=== PATIENT | male | born 1965 | race Two or more races ===

== ENCOUNTER 2017-08-22 02:13 | Emergency (ER) | payer SELFPAY ==
[~2017-08-22] VITALS: Ht 165.1 cm; Wt 83.9 kg
[2017-08-22 02:20] VITALS: BP 122/75
[2017-08-22] MEDS ORDERED: ZANTAC150 MG ORAL (02:28)
[2017-08-22] MEDS ORDERED: LOSARTAN POTASS50 MG ORAL (02:28)
[2017-08-22] MEDS ORDERED: DEXILANT30 MG ORAL (02:28)
[2017-08-22] MEDS ORDERED: ATENOLOL25 MG ORAL (02:28)
[2017-08-22] MEDS ORDERED: LOPID600 MG ORAL (02:28)
[2017-08-22] MEDS ORDERED: LIPITOR40 MG ORAL (02:28)
[2017-08-22 02:43] LABS: BASOPHILS % (AUTO) 1.1 % (0.0-2.0); EOSINOPHILS % (AUTO) 1.7 % (0.0-3.0); HEMATOCRIT 38.7 % (42.0-52.0); HEMOGLOBIN 12.4 G/DL (14.2-18.0); LYMPHOCYTES % (AUTO) 35.1 % (20.0-45.0); MEAN CORPUSCULAR VOLUME 81 FL (80-99); NEUTROPHILS % (AUTO) 53.1 % (45.0-75.0); PLATELET COUNT 181 K/UL (150-450); WHITE BLOOD COUNT 4.5 K/UL (4.8-10.8)
[2017-08-22] MEDS ORDERED: Mylanta II UD 30ml ORAL ONE ×2 (02:45→03:30)
[2017-08-22] MEDS ORDERED: Dicyclomine HCl 10mg/5ml oral soln ORAL ONE ×2 (02:45→03:30)
[2017-08-22] MEDS ORDERED: Lidocaine 2% Visc 15ml soln ORAL ONE ×2 (02:45→03:30)
--- NOTE | 2017-08-22 02:53 | Emergency Room Report ---
History of Present Illness General Chief Complaint: Chest Pain Source: Patient Present Illness HPI Patient present with complaints of chest pain midsternal epigastric Denies any shortness of breath denies any cough Pain came on at 8:00 this evening Patient does not recall exactly what he was doing Patient has had a fairly significant previous CVA With left-sided weakness and uses a wheelchair Denies any neck pain or photophobia denies any vomiting Pain was a sharp pain that lasts a few seconds Allergies: Uncoded Allergies: IV CONTRAST (Allergy, Unknown, 08/22/17) Patient History Past Medical History: see triage record Pertinent Family History: none Reviewed Nursing Documentation: PMH: Agreed, PSxH: Agreed Nursing Documentation-PMH Past Medical History: No History, Except For Hx Hypertension: Yes Hx Cerebrovascular Accident: Yes - 2015 Review of Systems All Other Systems: negative except mentioned in HPI Physical Exam Vital Signs Date Time Temp Pulse Resp B/P (MAP) Pulse Ox O2 Delivery O2 Flow Rate FiO2 08/22/17 02:20 56 12 Room Air 08/22/17 02:20 98.1 122/75 98 Sp02 EP Interpretation: reviewed, normal General Appearance: well appearing, no apparent distress Head: normocephalic, atraumatic Eyes: bilateral eye PERRL, bilateral eye EOMI ENT: hearing grossly normal, normal pharynx, TMs + canals normal, uvula midline , other - Left facial paralysis Neck: full range of motion, supple, no meningismus, no bony tend Respiratory: lungs clear, normal breath sounds, no rhonchi, no respiratory distress, no retraction, no accessory muscle use Cardiovascular #1: normal peripheral pulses, regular rate, rhythm, no edema, no gallop, no JVD, no murmur Gastrointestinal: normal bowel sounds, non tender, soft, no mass, no organomegaly, non-distended, no guarding, no hernia, no pulsatile mass, no rebound Genitourinary: no CVA tenderness Musculoskeletal: other - left-sided weak Neurologic: oriented x3, responsive, sensory intact Psychiatric: mood/affect normal Skin: normal color, no rash, warm/dry, palpation normal Lymphatic: normal inspection, no adenopathy Medical Decision Making Diagnostic Impression: Primary Impression: Chest pain ER Course Patient is a fairly complex patient with multiple differential to consideration including but not limited to cardiac cardiopulmonary and vascular emergencies Patient's EKG is normal Blood work is also at normal levels X-ray was normal Patient describes recent hospitalizations at [facility] recent hospitalization at at [place] Patient reports that he has previous reports of requiring upper endoscopy gastric issues At this time there could be some potential overlap with that however the chest and does not appear to be cardiac in nature and the patient is stable for close followup Labs Test 08/22/17 02:32 White Blood Count 4.5 K/UL (4.8-10.8) Red Blood Count 4.80 M/UL (4.70-6.10) Hemoglobin 12.4 G/DL (14.2-18.0) Hematocrit 38.7 % (42.0-52.0) Mean Corpuscular Volume 81 FL (80-99) Mean Corpuscular Hemoglobin 25.7 PG (27.0-31.0) Mean Corpuscular Hemoglobin Concent 31.9 G/DL (32.0-36.0) Red Cell Distribution Width 15.0 % (11.6-14.8) Platelet Count 181 K/UL (150-450) Mean Platelet Volume 9.5 FL (6.5-10.1) Neutrophils (%) (Auto) 53.1 % (45.0-75.0) Lymphocytes (%) (Auto) 35.1 % (20.0-45.0) Monocytes (%) (Auto) 9.0 % (1.0-10.0) Eosinophils (%) (Auto) 1.7 % (0.0-3.0) Basophils (%) (Auto) 1.1 % (0.0-2.0) Sodium Level 141 MMOL/L (136-145) Potassium Level 3.3 MMOL/L (3.5-5.1) Chloride Level 106 MMOL/L (98-107) Carbon Dioxide Level 25 MMOL/L (21-32) Anion Gap 10 mmol/L (5-15) Blood Urea Nitrogen 19 mg/dL (7-18) Creatinine 1.1 MG/DL (0.55-1.30) Estimat Glomerular Filtration Rate > 60 mL/min (>60) Glucose Level 100 MG/DL (74-106) Calcium Level 8.7 MG/DL (8.5-10.1) Total Bilirubin 0.4 MG/DL (0.2-1.0) Aspartate Amino Transf (AST/SGOT) 19 U/L (15-37) Alanine Aminotransferase (ALT/SGPT) 27 U/L (12-78) Alkaline Phosphatase 65 U/L (46-116) Total Creatine Kinase 210 U/L (26-308) Creatine Kinase MB 1.5 NG/ML (0.0-3.6) Creatine Kinase MB Relative Index 0.7 Troponin I 0.000 ng/mL (0.000-0.056) Total Protein 7.5 G/DL (6.4-8.2) Albumin 4.1 G/DL (3.4-5.0) Globulin 3.4 g/dL Albumin/Globulin Ratio 1.2 (1.0-2.7) Lipase 290 U/L (73-393) EKG Diagnostic Results Rate: normal Rhythm: NSR ST Segments: no acute changes Rhythm Strip Diag. Results EP Interpretation: yes Rate: 60 Rhythm: NSR, no PVC's, no ectopy Chest X-Ray Diagnostic Results Chest X-Ray Diagnostic Results : Chest X-Ray Ordered: Yes # of Views/Limited/Complete: 1 View Indication: Chest Pain EP Interpretation: Yes Interpretation: no consolidation, no effusion, no pneumothorax Impression: No acute disease Electronically Signed by: Guillermo Linn DO Last Vital Signs Date Time Temp Pulse Resp B/P (MAP) Pulse Ox O2 Delivery O2 Flow Rate FiO2 08/22/17 02:22 98.2 60 16 139/92 99 Room Air Status: improved Disposition: HOME, SELF-CARE Condition: Improved Additional Instructions: Patient is provided with the discharge instructions notified to follow up with primary doctor in the next 2-3 days otherwise return to the er with any worsening symptoms. Please note that this report is being documented using [employer] technology. This can lead to erroneous entry secondary to incorrect interpretation by the dictating instrument. GUILLERMO LINN D.O. Aug 22, 2017 02:53
[2017-08-22 02:56] LABS: ANION GAP 10 mmol/L (5-15); BLOOD UREA NITROGEN 19 mg/dL (7-18); CALCIUM 8.7 MG/DL (8.5-10.1); CARBON DIOXIDE 25 MMOL/L (21-32); CHLORIDE 106 MMOL/L (98-107); CREATININE 1.1 MG/DL (0.55-1.30); POTASSIUM 3.3 MMOL/L (3.5-5.1); SODIUM 141 MMOL/L (136-145)
[2017-08-22 03:10] LABS: ALANINE AMINOTRANSFERASE 27 U/L (12-78); ALBUMIN 4.1 G/DL (3.4-5.0); ALBUMIN/GLOBULIN RATIO 1.2 (1.0-2.7); ALKALINE PHOSPHATASE 65 U/L (46-116); ASPARTATE AMINO TRANSFERASE 19 U/L (15-37); BILIRUBIN,TOTAL 0.4 MG/DL (0.2-1.0); CKMB 1.5 NG/ML (0.0-3.6); CREATINE KINASE 210 U/L (26-308)
[2017-08-22 03:28] VITALS: BP 128/71
[2017-08-22 03:30] VITALS: BP 128/71
--- NOTE | 2017-08-22 08:36 | Diagnostic Imaging Report ---
Indication: Pain Technique: XRAY Chest 1v Comparison: None Findings: Heart size and mediastinal contours are within normal limits given technique. There is no focal consolidation, pneumothorax or pleural effusion. Osseous structures demonstrate no acute abnormality. Impression: No radiographic evidence of acute cardiopulmonary disease.
--- NOTE | 2017-08-22 14:45 | Cardiology Report ---
APPROVED REPORT EKG Measurement Heart [id number] Normal sinus rhythm Normal ECG
== END 2017-08-22 03:30 | disposition home or self-care (01) ==
LOC: EMR 02:25
DX: R07.9 Chest pain, unspecified (principal); I10 Essential (primary) hypertension; Z86.73 Personal history of transient ischemic attack (TIA), and cerebral infarction without residual deficits; Z91.041 Radiographic dye allergy status
CPT/HCPCS: 36415; 71045; 80053; 82550; 82553; 83690; 84484; 85025; 93005; 99283

== ENCOUNTER 2017-08-29 02:33 | Emergency (ER) | payer SELFPAY ==
[~2017-08-29] VITALS: Ht 170.2 cm; Wt 68.0 kg
[~2017-08-29 02:33] MED LIST: ATENOLOL25 MG ORAL; DEXILANT30 MG ORAL; LIPITOR40 MG ORAL; LOPID600 MG ORAL; LOSARTAN POTASS50 MG ORAL; ZANTAC150 MG ORAL
[2017-08-29] MEDS ORDERED: NORVASC10 MG ORAL (02:41)
[2017-08-29] MEDS ORDERED: PANTOPRAZOLE SO40 MG ORAL (02:41)
[2017-08-29] MEDS ORDERED: ASPIRIN81 MG ORAL (02:41)
[2017-08-29] MEDS ORDERED: AMOXICILLI250 MG/5 M ORAL (02:41)
[2017-08-29] MEDS ORDERED: FERROUS SULFAT325 MG ORAL (02:41)
[2017-08-29] MEDS ORDERED: CLARITHROMYCIN500 MG PO (02:41)
[2017-08-29] MEDS ORDERED: SERTRALINE HCL25 MG ORAL (02:41)
[2017-08-29] MEDS ORDERED: Ketorolac 30mg Inj IV ONE (03:00)
--- NOTE | 2017-08-29 03:04 | Emergency Room Report ---
History of Present Illness General Chief Complaint: Chest Pain Source: Patient, Medical Record, EMS Present Illness HPI Is a 51-year-old male with history blood pressure. He is also wheelchair- bound. He present with chief complaint of epigastric chest pain. Pain is mild. Onset for last 4 hours. Also with vomiting. Now with headache. Similar symptom in the past he was just here a few days ago for the same. Before that he was admitted to [facility] for several days. No radiation. No diaphoresis. No shortness of breath. Allergies: Uncoded Allergies: IV CONTRAST (Allergy, Unknown, 08/22/17) Patient History Past Medical History: see triage record, old chart reviewed, HTN Past Surgical History: none Pertinent Family History: none Social History: Denies: smoking Immunizations: other Reviewed Nursing Documentation: PMH: Agreed, PSxH: Agreed Nursing Documentation-PMH Hx Cerebrovascular Accident: Yes - 2016 Review of Systems Eye: Denies: eye pain, blurred vision ENT: Denies: ear pain, nose congestion, throat swelling Respiratory: Denies: cough, shortness of breath Cardiovascular: Reports: chest pain, Denies: palpitations Gastrointestinal: Denies: abdominal pain, diarrhea, nausea, vomiting Musculoskeletal: Denies: back pain, joint pain Skin: Denies: rash Neurological: Denies: headache, numbness Endocrine: Denies: increased thirst, increased urine Hematologic/Lymphatic: Denies: easy bruising All Other Systems: negative except mentioned in HPI Physical Exam Vital Signs Date Time Temp Pulse Resp B/P (MAP) Pulse Ox O2 Delivery O2 Flow Rate FiO2 08/29/17 02:29 98.2 78 18 140/84 98 Room Air vitals normal Sp02 EP Interpretation: reviewed, normal General Appearance: well appearing, no apparent distress, alert Head: normocephalic, atraumatic Eyes: bilateral eye PERRL, bilateral eye EOMI ENT: hearing grossly normal, normal pharynx Neck: full range of motion, supple, no meningismus Respiratory: chest non-tender, lungs clear, normal breath sounds Cardiovascular #1: regular rate, rhythm, no murmur Gastrointestinal: normal bowel sounds, non tender, no mass, no organomegaly, no bruit, non-distended Musculoskeletal: back normal, normal range of motion Psychiatric: mood/affect normal Skin: warm/dry Medical Decision Making Diagnostic Impression: Primary Impression: Chest pain Qualified Codes: R07.9 - Chest pain, unspecified Additional Impression: Vomiting Qualified Codes: R11.10 - Vomiting, unspecified ER Course Patient present with atypical chest pain. Unlikely to be cardiac. He was at [place] prior to the last visit. After this he was at [facility] a few days. He hasn't issue is GI where he can't keep anything down. Unknown workup. He does not appear to be dehydrated. Tolerating by mouth. He was just discharged from [facility]. EKG Diagnostic Results Rate: normal Rhythm: NSR ST Segments: other - Nonspecific ST changes Rhythm Strip Diag. Results Rhythm Strip Time: 03:04 EP Interpretation: yes Rate: 75 Rhythm: NSR, no PVC's, no ectopy Last Vital Signs Date Time Temp Pulse Resp B/P (MAP) Pulse Ox O2 Delivery O2 Flow Rate FiO2 08/29/17 02:34 78 18 Room Air 08/29/17 02:29 98.2 140/84 98 Status: improved Disposition: HOME, SELF-CARE Condition: Stable Patient Instructions: Nonspecific Chest Pain Additional Instructions: Followup with your doctor as scheduled. Return if symptom worsen. INGRID HILL M.D. Aug 29, 2017 03:04
[2017-08-29 04:08] VITALS: BP 127/83
[2017-08-29 05:21] VITALS: BP 111/83
[2017-08-29 05:24] VITALS: BP 111/83
== END 2017-08-29 05:25 | disposition home or self-care (01) ==
LOC: EDBD 02:33 → EMR 03:19
DX: R07.89 Other chest pain (principal); R11.10 Vomiting, unspecified; Z86.73 Personal history of transient ischemic attack (TIA), and cerebral infarction without residual deficits
CPT/HCPCS: 84484; 96374; 99284; J1885

== ENCOUNTER 2020-03-25 12:52 | Emergency (ER) | payer MEDICAID ==
[~2020-03-25] VITALS: Ht 175.3 cm; Wt 77.1 kg
[~2020-03-25 12:52] MED LIST changes: +AMOXICILLI250 MG/5 M ORAL; +ASPIRIN81 MG ORAL; +CLARITHROMYCIN500 MG PO; +FERROUS SULFAT325 MG ORAL; +NORVASC10 MG ORAL; +PANTOPRAZOLE SO40 MG ORAL; +SERTRALINE HCL25 MG ORAL
[2020-03-25] MEDS ORDERED: Solu-MEDROL 125mg Inj IVP ONE (13:15)
[2020-03-25] MEDS ORDERED: Ipratropium 0.02% Inh Soln 2.5ml UD HHN SCH (13:15)
[2020-03-25] MEDS ORDERED: Albuterol ud Inhalation HHN ONE (13:15)
--- NOTE | 2020-03-25 13:28 | NUR ---
ED Nurse Note: Covid swab collected and sent to lab
[2020-03-25 13:30] VITALS: BP 139/88
[2020-03-25 13:37] LABS: EOSINOPHILS % (AUTO) 1.4 % (0.0-3.0); HEMATOCRIT 43.3 % (42.0-52.0); HEMOGLOBIN 14.4 G/DL (14.2-18.0); LYMPHOCYTES % (AUTO) 29.1 % (20.0-45.0); MEAN CORPUSCULAR VOLUME 93 FL (80-99); MONOCYTES % (AUTO) 7.4 % (1.0-10.0); PLATELET COUNT 119 K/UL (150-450); RED BLOOD COUNT 4.63 M/UL (4.70-6.10); RED CELL DISTRIBUTION WIDTH 11.5 % (11.6-14.8); WHITE BLOOD COUNT 4.6 K/UL (4.8-10.8)
--- NOTE | 2020-03-25 13:45 | NUR ---
ED Nurse Note: Patient BIBA from home d/t 03/13 left-sided chest pain/pressure that radiates to right shoulder x 1 week. Denies n/v, shortness of breath. EMS gave 325 ASA and nitro intranasal x 1. Patient AxO x 4, hx of asthma and CVA. Patient calm and in no acute distress.
[2020-03-25 13:50] LABS: ANION GAP 10 mmol/L (5-15); BLOOD UREA NITROGEN 18 mg/dL (7-18); CARBON DIOXIDE 26 MMOL/L (21-32); CHLORIDE 107 MMOL/L (98-107); POTASSIUM 3.6 MMOL/L (3.5-5.1); SODIUM 143 MMOL/L (136-145)
--- NOTE | 2020-03-25 13:59 | Emergency Room Report ---
History of Present Illness General Chief Complaint: Chest Pain Source: Medical Record (Kulwinder Fernandez MD) Present Illness HPI Patient is a 54-year-old male who reports having intermittent chest pain for the past few weeks. Prior history of high cholesterol as well as CVA. Patient has a residual difficulty with some movements including opening and closing his mouth. Reports having increased shortness of breath as well as increased nasal congestion. Denies any prior cardiac history. He has prior history of asthma. Denies any recent fever. Had been receiving therapy for lower extremity weakness. (Kulwinder Fernandez MD) Allergies: Coded Allergies: IODINE (Unverified Allergy, Unknown, 03/25/20) Uncoded Allergies: IV CONTRAST (Allergy, Unknown, 08/22/17) COVID-19 Screening Contact w/high risk pt: No Experienced COVID-19 symptoms?: No COVID-19 Testing performed FOREST RANGER: No (Kulwinder Fernandez MD) Patient History Past Medical History: see triage record Reviewed Nursing Documentation: PMH: Agreed; PSxH: Agreed (Kulwinder Fernandez MD) Nursing Documentation-PMH Past Medical History: No History, Except For Hx Hypertension: Yes - DYSARTHRIA, DYSPHAGIA, GASTRIC ULCER, Hx Asthma: Yes Hx Cerebrovascular Accident: Yes - 2016 (Kulwinder Fernandez MD) Review of Systems All Other Systems: negative except mentioned in HPI (Kulwinder Fernandez MD) Physical Exam Vital Signs Date Time Temp Pulse Resp B/P (MAP) Pulse Ox O2 Delivery O2 Flow Rate FiO2 03/25/20 12:54 99.3 76 18 139/88 (105) 97 Room Air Sp02 EP Interpretation: reviewed, normal General Appearance: normal inspection, well appearing, no apparent distress, alert, GCS 15 Head: atraumatic ENT: normal ENT inspection, hearing grossly normal, normal voice Neck: normal inspection, full range of motion, supple, no bony tend Respiratory: normal inspection, lungs clear, normal breath sounds, no respiratory distress, no retraction, no wheezing Cardiovascular #1: regular rate, rhythm, no edema Gastrointestinal: normal inspection, normal bowel sounds, non tender, soft, no guarding, no hernia Genitourinary: no CVA tenderness Musculoskeletal: normal inspection, back normal, other - Motor weakness to the left lower extremity, difficulty with opening the mouth Neurologic: alert, responsive, speech normal, normal inspection Psychiatric: normal inspection, judgement/insight normal, mood/affect normal (Kulwinder Fernandez MD) Medical Decision Making Diagnostic Impression: Primary Impression: Chest pain Qualified Codes: R07.9 - Chest pain, unspecified ER Course Patient presented for chest pain. Differential diagnosis included but was not limited to acute coronary syndrome, pulmonary embolism, pneumonia, aortic dissection, shingles, pneumothorax, aortic dissection, esophageal rupture, pericarditis. EKG showed normal sinus rhythm with a rate of [address] changes. Patient appears to have chest pain which appears to be respiratory in nature likely related to his asthma. Chest x-ray 1 view read by radiology showed normal cardiac size without evident infiltrate coronavirus testing was ordered due to patient's respiratory symptoms as it appears breathing treatment is necessary.. Patient was given IV steroids as well as breathing treatment. Labs Test 03/25/20 13:05 White Blood Count 4.6 K/UL (4.8-10.8) Red Blood Count 4.63 M/UL (4.70-6.10) Hemoglobin 14.4 G/DL (14.2-18.0) Hematocrit 43.3 % (42.0-52.0) Mean Corpuscular Volume 93 FL (80-99) Mean Corpuscular Hemoglobin 31.2 PG (27.0-31.0) Mean Corpuscular Hemoglobin Concent 33.4 G/DL (32.0-36.0) Red Cell Distribution Width 11.5 % (11.6-14.8) Platelet Count 119 K/UL (150-450) Mean Platelet Volume 9.9 FL (6.5-10.1) Neutrophils (%) (Auto) 61.0 % (45.0-75.0) Lymphocytes (%) (Auto) 29.1 % (20.0-45.0) Monocytes (%) (Auto) 7.4 % (1.0-10.0) Eosinophils (%) (Auto) 1.4 % (0.0-3.0) Basophils (%) (Auto) 1.0 % (0.0-2.0) Sodium Level 143 MMOL/L (136-145) Potassium Level 3.6 MMOL/L (3.5-5.1) Chloride Level 107 MMOL/L (98-107) Carbon Dioxide Level 26 MMOL/L (21-32) Anion Gap 10 mmol/L (5-15) Blood Urea Nitrogen 18 mg/dL (7-18) Creatinine 1.0 MG/DL (0.55-1.30) Estimat Glomerular Filtration Rate > 60 mL/min (>60) Glucose Level 107 MG/DL (74-106) Calcium Level 9.0 MG/DL (8.5-10.1) Troponin I 0.000 ng/mL (0.000-0.056) (Kulwinder Fernandez MD) ER Course Hospital Course 54 yo M presents to ED c/o chest pain. Patient initially seen and evaluated by Dr Fernandez; please see his note for full history and physical Clinical course labs reviewed- all electrolytes normal, troponins negative, no leukocytosis, hemoglobin/hematocrit stable COVID negative EKG - NSR no acute ischemic changes interpreted by me Chest x-ray-no cardiomegaly, no rib fracture, no pneumothorax, no acute process patient given breathing treatments. states he feels better. safe for discharged with close outpatient followup I. I feel this is a highly complex case requiring extensive working including EKG/Rhythm strip, Xray/CT/US, Blood/urine lab work, repeat exams while in ED, and administration of strong opiates/narcotics for pain control, admission to hospital or close patient follow up. Diagnosis - chest pain Stable and discharged to home with Rx Prednisone, Albuterol. Instructed to followup with PMD. Return to ED if symptoms recur or worsen Laboratory Tests Test 03/25/20 13:05 White Blood Count 4.6 K/UL (4.8-10.8) L Red Blood Count 4.63 M/UL (4.70-6.10) L Hemoglobin 14.4 G/DL (14.2-18.0) Hematocrit 43.3 % (42.0-52.0) Mean Corpuscular Volume 93 FL (80-99) Mean Corpuscular Hemoglobin 31.2 PG (27.0-31.0) H Mean Corpuscular Hemoglobin Concent 33.4 G/DL (32.0-36.0) Red Cell Distribution Width 11.5 % (11.6-14.8) L Platelet Count 119 K/UL (150-450) L Mean Platelet Volume 9.9 FL (6.5-10.1) Neutrophils (%) (Auto) 61.0 % (45.0-75.0) Lymphocytes (%) (Auto) 29.1 % (20.0-45.0) Monocytes (%) (Auto) 7.4 % (1.0-10.0) Eosinophils (%) (Auto) 1.4 % (0.0-3.0) Basophils (%) (Auto) 1.0 % (0.0-2.0) D-Dimer < 0.19 mg/L FEU Sodium Level 143 MMOL/L (136-145) Potassium Level 3.6 MMOL/L (3.5-5.1) Chloride Level 107 MMOL/L (98-107) Carbon Dioxide Level 26 MMOL/L (21-32) Anion Gap 10 mmol/L (5-15) Blood Urea Nitrogen 18 mg/dL (7-18) Creatinine 1.0 MG/DL (0.55-1.30) Estimat Glomerular Filtration Rate > 60 mL/min (>60) Glucose Level 107 MG/DL (74-106) H Calcium Level 9.0 MG/DL (8.5-10.1) Total Bilirubin 0.4 MG/DL (0.2-1.0) Aspartate Amino Transf (AST/SGOT) 22 U/L (15-37) Alanine Aminotransferase (ALT/SGPT) 43 U/L (12-78) Alkaline Phosphatase 56 U/L (46-116) Troponin I 0.000 ng/mL (0.000-0.056) C-Reactive Protein, Quantitative < 0.4 mg/dL (0.00-0.90) Pro-B-Type Natriuretic Peptide 10 pg/mL (0-125) Total Protein 7.4 G/DL (6.4-8.2) Albumin 4.1 G/DL (3.4-5.0) Globulin 3.3 g/dL Albumin/Globulin Ratio 1.2 (1.0-2.7) Lipase 224 U/L (73-393) (Miles Robles MD) EKG Diagnostic Results Rate: normal Rhythm: NSR ST Segments: no acute changes ASA given to the pt in ED: No (Miles Robles MD) Rhythm Strip Diag. Results EP Interpretation: yes Rhythm: NSR, no PVC's, no ectopy (Miles Robles MD) Chest X-Ray Diagnostic Results Chest X-Ray Diagnostic Results : Chest X-Ray Ordered: Yes # of Views/Limited/Complete: 1 View Indication: Chest Pain EP Interpretation: Yes Interpretation: no consolidation, no effusion, no pneumothorax, no acute cardiopulmonary disease Impression: No acute disease Electronically Signed by: Electronically signed by Miles Robles MD (Miles Robles MD) Last Vital Signs Date Time Temp Pulse Resp B/P (MAP) Pulse Ox O2 Delivery O2 Flow Rate FiO2 03/25/20 12:54 99.3 76 18 139/88 (105) 97 Room Air Status: improved (Kulwinder Fernandez MD) Status: improved (Miles Robles MD) Disposition: HOME, SELF-CARE Condition: Stable Scripts Albuterol Sulfate* (Albuterol Sulfate Hfa*) 8.5 Gm Hfa.aer.ad 2 PUFF INH Q6H, #1 INH Prov: Kulwinder Fernandez MD 03/25/20 Prednisone* (PREDNISONE*) 20 Mg Tablet 40 MG ORAL DAILY, #10 TAB Prov: Kulwinder Fernandez MD 03/25/20 Kulwinder Fernandez MD Mar 25, 2020 13:59 Miles Robles MD Mar 25, 2020 17:37
[2020-03-25 14:01] LABS: ALANINE AMINOTRANSFERASE 43 U/L (12-78); ALBUMIN 4.1 G/DL (3.4-5.0); ALBUMIN/GLOBULIN RATIO 1.2 (1.0-2.7); ALKALINE PHOSPHATASE 56 U/L (46-116); ASPARTATE AMINO TRANSFERASE 22 U/L (15-37); BILIRUBIN,TOTAL 0.4 MG/DL (0.2-1.0)
[2020-03-25] MEDS ORDERED: PREDNISONE20 MG ORAL (14:28)
[2020-03-25] MEDS ORDERED: ALBUTEROL SULF8.5 G1 INH (14:28)
--- NOTE | 2020-03-25 14:30 | Diagnostic Imaging Report ---
EXAM: XR Chest, 1 View CLINICAL HISTORY: SOB TECHNIQUE: Frontal view of the chest. COMPARISON: Chest x-ray report 08/22/17, images not available FINDINGS: Lungs: Unremarkable. No consolidation. Pleural space: Unremarkable. No pneumothorax. Heart: Unremarkable. No cardiomegaly. Mediastinum: Unremarkable. Bones/joints: Unremarkable. IMPRESSION: No acute process.
--- NOTE | 2020-03-25 15:12 | NUR ---
ED Nurse Note: RT at bedside giving breathing trx
[2020-03-25 15:30] VITALS: BP 130/86
--- NOTE | 2020-03-25 15:52 | NUR ---
ER DISCHARGE NOTE: Patient is cleared to be discharged per ERMD, pt is aox4, on room air, with stable vital signs.chest pain resolved with breathing treatment. pt was given dc and prescription instructions, pt was able to verbalize understanding, pt id band and iv site removed without complications. pt is able to ambulate with steady gait. pt took all belongings.
[2020-03-25 15:53] VITALS: BP 130/86
== END 2020-03-25 15:53 | disposition home or self-care (01) ==
LOC: EDBD 12:52 → EMR 13:10
DX: R07.9 Chest pain, unspecified (principal); E78.00 Pure hypercholesterolemia, unspecified; Z86.73 Personal history of transient ischemic attack (TIA), and cerebral infarction without residual deficits; Z91.041 Radiographic dye allergy status
CPT/HCPCS: 36415; 71045; 80053; 83690; 83880; 84484; 85025; 85379; 86140; 93005; 94640; 96374; J2930; U0002; Z7502; 99284

== ENCOUNTER 2020-03-28 20:04 | Emergency (ER) | payer MEDICAID ==
[~2020-03-28] VITALS: Ht 170.2 cm; Wt 86.2 kg
[~2020-03-28 20:04] MED LIST changes: +ALBUTEROL SULF8.5 G1 INH; +PREDNISONE20 MG ORAL
[2020-03-28 20:32] VITALS: BP 138/93
--- NOTE | 2020-03-28 20:43 | Emergency Room Report ---
History of Present Illness General Chief Complaint: Flu Like Symptoms Source: Patient Present Illness HPI Disclaimer: Please note that this report is being documented using [employer] technology. This can lead to erroneous entry secondary to incorrect interpretation by the dictating instrument. HPI: 57-year-old male presents for evaluation of URI symptoms. Patient seen in the emergency department 2 days ago complaining of chest pain, congestion, cough. He tested negative for COVID-19, had an unremarkable x-ray and unremarkable labs. He was sent home with refills of his albuterol inhaler, fluticasone, prednisone. He was started on Augmentin today by his PMD for upper respiratory infection. He reports persistent nasal congestion and postnasal drip and sore throat. Denies fever, chills. Eating and drinking at baseline. Reports persistent cough but attributed to postnasal drip again. Denies chest pain today or difficulty breathing. He is requesting for more medication to help with his sore throat and nasal congestion. 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 EOMI. PERRLA. Uvula midline. Nonobstructing tonsils, no significant edema, erythema no purulence identified. Mild submandibular lymphadenopathy, bilateral and symmetrical. Cardiovascular: RRR. S1 and S2 normal. No murmur appreciated Resp: Normal work of breathing. No cough, wheezing or crackles appreciated Skin: Intact. No abrasions, laceration or rash over the exposed skin MSK: Normal tone and bulk. Moving all extremities. No obvious deformity. Neuro: Awake and alert. Mentating appropriately. Medical Decision Making Diagnostic Impression: Primary Impression: Upper respiratory tract infection ER Course 54-year-old male presents for evaluation of persistent nasal congestion and postnasal drip. Reviewed labs and work-up on recent emergency department visit 2 days ago and the patient is now been started on antibiotics by his PMD. I see no signs of acute pharyngitis and his presentation is likely secondary viral syndrome. He is already tested negative for COVID-19. Do not believe he requires repeat of his labs, imaging or other work-up in the emergency department today. His symptoms are likely to persist though he is already been prescribed the appropriate medications to treat symptoms. We will follow-up with PMD. [place] for outpatient follow-up. Last Vital Signs Date Time Temp Pulse Resp B/P (MAP) Pulse Ox O2 Delivery O2 Flow Rate FiO2 03/28/20 20:32 98.8 80 14 138/93 98 Room Air Disposition: HOME, SELF-CARE Condition: Stable Patient Instructions: Upper Respiratory Infection, Adult Additional Instructions: Continue the antibiotics, prednisone, inhalers as prescribed by your doctor and last emergency department visit. Please follow-up with your primary care doctor in the next 1 to 3 days to discuss this emergency department visit and for reevaluation. If you have any new or worsening symptoms please return to the emergency department for reevaluation. Please note that this report is being documented using [employer] technology. This can lead to erroneous entry secondary to incorrect interpretation by the dictating instrument. Emil Sandhu MD Mar 28, 2020 20:43
[2020-03-28 21:00] VITALS: BP 135/89
== END 2020-03-28 21:00 | disposition home or self-care (01) ==
LOC: EMR 20:54
DX: J06.9 Acute upper respiratory infection, unspecified (principal); I10 Essential (primary) hypertension; Z86.73 Personal history of transient ischemic attack (TIA), and cerebral infarction without residual deficits; Z88.6 Allergy status to analgesic agent; Z91.041 Radiographic dye allergy status
CPT/HCPCS: 99282

== ENCOUNTER 2020-06-01 16:59 | Emergency (ER) | payer MEDICAID ==
[~2020-06-01] VITALS: Ht 170.2 cm; Wt 77.1 kg
[2020-06-01 17:10] VITALS: BP 150/81
--- NOTE | 2020-06-01 17:15 | Emergency Room Report ---
History of Present Illness General Chief Complaint: Chest Pain Source: Patient Present Illness HPI Patient is 54-year-old male presents for increased left-sided chest pain. Reports having prior stent in the past. Prior history of CVA with resulting right-sided weakness. Had onset of symptoms approximately 7 hours prior to arrival. Reports having left-sided squeezing pain rating to the back. Prior history of asthma. Reports having some increased cough. Had recent history of pericarditis. Denies any vomiting or diarrhea. Had previous cardiac stent placement. 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 Patient History Past Medical History: see triage record Reviewed Nursing Documentation: PMH: Agreed; PSxH: Agreed Nursing Documentation-PMH Past Medical History: No History, Except For Hx Cardiac Problems: Yes - high cholesterol Hx Hypertension: Yes Hx Asthma: Yes Hx Cerebrovascular Accident: Yes - 2018 Review of Systems All Other Systems: negative except mentioned in HPI Physical Exam Vital Signs Date Time Temp Pulse Resp B/P (MAP) Pulse Ox O2 Delivery O2 Flow Rate FiO2 06/01/20 17:09 100.6 82 19 150/81 (104) 99 Room Air Sp02 EP Interpretation: reviewed, normal General Appearance: normal inspection, well appearing, no apparent distress, al ert, GCS 15, Chronically Ill Head: atraumatic ENT: normal ENT inspection, hearing grossly normal, normal voice, other - difficulty opening mouth due to cva Neck: normal inspection, full range of motion, supple, no bony tend Respiratory: normal inspection, lungs clear, normal breath sounds, no re spiratory distress, no retraction, no wheezing Cardiovascular #1: regular rate, rhythm, no edema Gastrointestinal: normal inspection, normal bowel sounds, non tender, soft, no guarding, no hernia Genitourinary: no CVA tenderness Musculoskeletal: normal inspection, back normal, normal range of motion Neurologic: alert, motor weakness - right upper extremity with dense weakness, responsive, speech normal, normal inspection Psychiatric: normal inspection, judgement/insight normal, mood/affect normal Medical Decision Making Last Vital Signs Date Time Temp Pulse Resp B/P (MAP) Pulse Ox O2 Delivery O2 Flow Rate FiO2 06/01/20 17:09 100.6 82 19 150/81 (104) 99 Room Air Kulwinder Fernandez MD Jun 01, 2020 17:15
[2020-06-01] MEDS ORDERED: Aspirin Baby 81mg ORAL ONE (17:30)
[2020-06-01] MEDS ORDERED: Albuterol/Ipratropium 3ml neb HHN ONE (17:30)
[2020-06-01 18:00] LABS: EOSINOPHILS % (AUTO) 2.3 % (0.0-3.0); HEMATOCRIT 44.2 % (42.0-52.0); HEMOGLOBIN 15.1 G/DL (14.2-18.0); LYMPHOCYTES % (AUTO) 29.6 % (20.0-45.0); MEAN CORPUSCULAR VOLUME 94 FL (80-99); NEUTROPHILS % (AUTO) 57.1 % (45.0-75.0); PLATELET COUNT 128 K/UL (150-450); RED BLOOD COUNT 4.69 M/UL (4.70-6.10); WHITE BLOOD COUNT 4.6 K/UL (4.8-10.8)
[2020-06-01 18:05] LABS: ANION GAP 7 mmol/L (5-15); BLOOD UREA NITROGEN 11 mg/dL (7-18); CALCIUM 8.8 MG/DL (8.5-10.1); CARBON DIOXIDE 31 MMOL/L (21-32); CHLORIDE 105 MMOL/L (98-107); CREATININE 1.2 MG/DL (0.55-1.30); POTASSIUM 3.6 MMOL/L (3.5-5.1); SODIUM 143 MMOL/L (136-145)
[2020-06-01 18:22] LABS: ALANINE AMINOTRANSFERASE 27 U/L (12-78); ALBUMIN 4.3 G/DL (3.4-5.0); ALBUMIN/GLOBULIN RATIO 1.7 (1.0-2.7); ALKALINE PHOSPHATASE 54 U/L (46-116); ASPARTATE AMINO TRANSFERASE 21 U/L (15-37); BILIRUBIN,TOTAL 0.4 MG/DL (0.2-1.0)
[2020-06-01 19:20] VITALS: BP 135/80
[2020-06-01 19:26] LABS: APPEARANCE,URINE CLEAR; BILIRUBIN, URINE NEGATIVE (NEGATIVE); COLOR,URINE PALE YELLOW; GLUCOSE, URINE (UA) NEGATIVE (NEGATIVE); KETONES,URINE NEGATIVE (NEGATIVE); LEUKOCYTE ESTERASE ,URINE NEGATIVE (NEGATIVE); NITRITE,URINE NEGATIVE (NEGATIVE); PH,URINE 7 (4.5-8.0); PROTEIN,URINE NEGATIVE (NEGATIVE); UROBILINOGEN,URINE NORMAL MG/DL (0.0-1.0)
[2020-06-01] MEDS ORDERED: PREDNISONE20 MG ORAL (20:40)
[2020-06-01] MEDS ORDERED: ZITHROMAX250 MG ORAL (20:40)
[2020-06-01 21:00] VITALS: BP 136/83
[2020-06-01 21:22] VITALS: BP 145/76
== END 2020-06-01 22:17 | disposition home or self-care (01) ==
LOC: EMR 17:24
DX: R07.9 Chest pain, unspecified (principal); Z95.5 Presence of coronary angioplasty implant and graft; Z88.6 Allergy status to analgesic agent; Z91.041 Radiographic dye allergy status; G81.91 Hemiplegia, unspecified affecting right dominant side; R05 Cough; E78.00 Pure hypercholesterolemia, unspecified; I10 Essential (primary) hypertension
CPT/HCPCS: 36415; 80053; 81001; 83880; 84443; 84484; 85025; 85379; 85610; 85651; 85730; 87040; 93005; U0002; Z7502; 99284

== ENCOUNTER 2020-06-08 22:01 | Emergency (ER) | payer MEDICAID ==
[~2020-06-08] VITALS: Ht 177.8 cm; Wt 86.2 kg
[~2020-06-08 22:01] MED LIST changes: +ZITHROMAX250 MG ORAL
--- NOTE | 2020-06-08 22:15 | NUR ---
ED Nurse Note: Patient came to the ED via wheelchair from home with c/o chest pain onset this AM. Patient rates pain 9/10 and comes and goes, pain is midsternal that radiates to left neck and head. Patient took 162mg ASA and 1 tab nitro 20 minutes ago with no relief. Patient has hx of CVA 3 yrs ago and has right sided body weakness. Patien denies SOB/, fever and chills. Patient is AAOX4 and placed on monitor bed
--- NOTE | 2020-06-08 22:16 | NUR ---
ED Nurse Note: ERMD at bedside
--- NOTE | 2020-06-08 22:17 | NUR ---
ED Nurse Note: Xray done at bedside
--- NOTE | 2020-06-08 22:20 | NUR ---
ED Nurse Note: Blood sent to lab
[2020-06-08 22:30] VITALS: BP 139/87
[2020-06-08 22:50] LABS: BASOPHILS % (AUTO) 1.2 % (0.0-2.0); HEMATOCRIT 46.4 % (42.0-52.0); HEMOGLOBIN 15.9 G/DL (14.2-18.0); LYMPHOCYTES % (AUTO) 34.1 % (20.0-45.0); MEAN CORPUSCULAR VOLUME 93 FL (80-99); MONOCYTES % (AUTO) 7.2 % (1.0-10.0); NEUTROPHILS % (AUTO) 55.5 % (45.0-75.0); PLATELET COUNT 138 K/UL (150-450); RED CELL DISTRIBUTION WIDTH 12.1 % (11.6-14.8); WHITE BLOOD COUNT 5.7 K/UL (4.8-10.8)
[2020-06-08 23:00] LABS: ANION GAP 7 mmol/L (5-15); BLOOD UREA NITROGEN 19 mg/dL (7-18); CALCIUM 8.5 MG/DL (8.5-10.1); CARBON DIOXIDE 30 MMOL/L (21-32); CHLORIDE 105 MMOL/L (98-107); CREATININE 1.1 MG/DL (0.55-1.30); POTASSIUM 3.8 MMOL/L (3.5-5.1); SODIUM 141 MMOL/L (136-145)
[2020-06-08 23:13] LABS: ALANINE AMINOTRANSFERASE 144 U/L (12-78); ALBUMIN 4.1 G/DL (3.4-5.0); ALBUMIN/GLOBULIN RATIO 1.6 (1.0-2.7); ALKALINE PHOSPHATASE 56 U/L (46-116); ASPARTATE AMINO TRANSFERASE 36 U/L (15-37); BILIRUBIN,TOTAL 0.3 MG/DL (0.2-1.0)
--- NOTE | 2020-06-09 00:14 | Emergency Room Report ---
History of Present Illness General Chief Complaint: Chest Pain Source: Patient Present Illness HPI 54-year-old male with past medical history of previous CVA with residual right upper extremity weakness, CAD, hypertension, dyslipidemia presents from home with complaint of left-sided chest pain radiating to the left neck and left jaw since this morning. Also endorses nausea and diaphoresis. He has not had any recent cardiac evaluation. Denies back pain, melena, hematochezia, abdominal pain, shortness of breath, fever, cough, chills, hemoptysis, weakness or other symptoms. Patient states he took aspirin and nitroglycerin prior to arrival with mild relief of pain The patient's symptoms were gradual onset, severity was moderate, duration since 1 day. Quality: Pressure Past medical history: CVA, CAD, hypertension, dyslipidemia Past surgical history: Left leg stent Smoking: Denies Alcohol use: Denies Drug use: Denies Review of systems: CONST: No fevers or chills, No night sweats PULMONARY: No productive cough, No shortness of breath CARDIAC: ++ chest pain, No palpitations GI: No vomiting, No diarrhea , No melena_or_BRBPR : No dysuria, No hematuria, No discharge NEURO: No new_focal_weakness_or_numbness, No confusion, No vision changes 14 point Review of Systems is otherwise negative except per HPI Physical Exam: GENERAL: Awake_alert_ nontoxic, no acute distress Spo2 100% on RA -normal EYES: Extraocular muscles are intact. Conjunctivae clear. Lids without swelling ENT: External nose and ear normal_in_appearance. Oropharynx clear. Head_atraumatic, Moist_oral_mucosa NECK: No JVD. No meningismus. No thyromegaly. Supple. Trachea midline RESP: Normal respiratory effort. Symmetric rise. No stridor. Clear_to_auscultation_No_rales_No_wheezes CARDIAC: Regular rate and regular rhytm. No_significant pedal edema. ABDOMEN: Soft. Nondistended. Nontender_No_rebound_or_guarding. MSK: Normal muscle tone, without rigidity. Extremities without asymmetric deformity or swelling. SKIN: Warm and dry. No visible cyanosis or pallor. Well-healed left inner thigh scar. NEUROLOGIC: Alert, oriented x3. Right upper extremity plus 4 out of 5 strength ( chronic previous CVA) Otherwise motor_and_sensation_grossly_intact. No truncal ataxia. Gait_normal Psych: Normal mood and affect, normal judgment and insight - COORDINATION OF CARE Case was discussed with: Patient , Patient's Physician Any labs and imaging that were ordered were interpreted as part of the medical decision making: Medical Decision Making/Plan: Differential diagnosis includes acute myocardial infarction, acute coronary syndrome and unstable angina, pulmonary embolism, pneumothorax, pneumonia, and aortic dissection, among others. Patient is currently well appearing with stable vitals. EKG shows sinus rhythm. No evidence of STEMI, and initial troponin is negative. Chest xray shows no acute disease. No evidence of pneumothorax, pneumonia, or significant pleural effusion. Labs show troponin negative x1. BNP normal. Aspirin given. However, given that chest pain is currently resolved, risks likely outweigh benefits of IV heparin at this time, so deferred. The pain is not classic for pericarditis or myocarditis, and the patient has no significant risk factors for a pericardial effusion and has stable vitals signs, unlikely to have tamponade. Pain is not likely to be pulmonary embolism, patient has no significant PE risk factors. The presentation is not consistent with dissection, pain is not severe, radiating to back, or tearing in nature. Has normal bilateral radial and pedal pulses. However given patients presentation and risk factors, patient will be admitted for serial troponins and risk stratification and evaluation for likely stress testing. This patient appears to be a suitable candidate for transfer to telemetry floor at this time with orders from the admitting physician who is aware of the patient's evaluation, ancillary test findings, and current condition, and agrees with treatment and disposition. I spoke with Dr. Oconnor, and reviewed the patients presentation, workup, results, and treatment. Patient is capitated to [facility] based on his insurance. They will admit the patient for further care and evaluation, and assume care of the patient at this time. The patient has been stabilized to the best of this emergency department's capabilities. Given the patient's medical needs, appropriate facilities for bang sfer were discussed and the decision has been made to transfer this patient to [facility]. The receiving facility has the capacity and capabilities to provide care for the patient. The patient has given verbal consent for the transfer. The risks and benefits were explained and the patient verbalizes their understanding. Allergies: Coded Allergies: MORPHINE (Verified Allergy, Mild, 03/28/20) IODINE (Unverified Allergy, Unknown, 03/25/20) Uncoded Allergies: IV CONTRAST (Allergy, Unknown, 08/22/17) COVID-19 Screening Contact w/high risk pt: No Experienced COVID-19 symptoms?: No COVID-19 Testing performed NURSERYPERSON: No Nursing Documentation-[facility] Past Medical History: No History, Except For Hx Cardiac Problems: Yes - high cholesterol Hx Hypertension: Yes Hx Asthma: Yes Hx Cerebrovascular Accident: Yes - 2017 Physical Exam Vital Signs Date Time Temp Pulse Resp B/P (MAP) Pulse Ox O2 Delivery O2 Flow Rate FiO2 06/08/20 22:02 98.2 73 21 139/87 (104) 100 Room Air Sp02 EP Interpretation: reviewed, normal Medical Decision Making Diagnostic Impression: Primary Impression: Chest pain Additional Impressions: Hypertension CVA (cerebral vascular accident) CAD (coronary artery disease) EKG Diagnostic Results Troponin ordered: Yes When was troponin ordered?: Jun 09, 2020 EKG Time: 00:12 Rate: normal Rhythm: NSR ST Segments: no acute changes ASA given to the pt in ED: No - Self-administered prior to arrival PA Scribe Text 12-lead EKG (interpreted by me) Time: 2228 Indication: Rhythm analysis Tracing visualized and Interpreted by me. Rhythm: Normal sinus rhythm Rate: 74 bpm QTc: 404 Morphology: No_significant_ST_elevations_or_depressions, No STEMI Impression: Normal_sinus_rhythm_without_significant_abnormality Rhythm Strip Diag. Results Rhythm Strip Time: 00:13 EP Interpretation: yes Rate: 2300 Rhythm: NSR Chest X-Ray Diagnostic Results Chest X-Ray Diagnostic Results : PA Scribe Text Chest X-Ray: Views: [ 1 ] view(s) Indication: Chest pain Findings: Normal heart size. Mediastinum normal. No infiltrate. Impression: Acute disease The X-ray(s) were independently viewed and interpreted contemporaneously Electronically signed by , Sudha Castillo DO Reevaluation Time: 00:14 Last Vital Signs Date Time Temp Pulse Resp B/P (MAP) Pulse Ox O2 Delivery O2 Flow Rate FiO2 06/08/20 22:30 84 20 Room Air 06/08/20 22:30 98.2 139/87 100 Status: improved Disposition: ADMITTED INPATIENT - TRANSFER TO [place] [facility] Admit Decision Time: 00:14 Condition: Stable Referrals: [facility],REFERRING (PCP) Sudha Castillo D.O. Jun 09, 2020 00:14
[2020-06-09] MEDS ORDERED: Nitroglycerin Patch 0.1mg/hr TDERMAL SCH (00:15)
[2020-06-09] MEDS ORDERED: Nitroglycerin Patch 0.2mg/hr TDERMAL ONE ×2 (00:31→00:39)
[2020-06-09] MEDS ORDERED: Nitroglycerin Patch 0.2mg/hr TDERMAL SCH (00:45)
--- NOTE | 2020-06-09 00:49 | NUR ---
ED Nurse Note: NTG 0.2mg/hr patch applied to left upper chest
--- NOTE | 2020-06-09 01:45 | NUR ---
ED Nurse Note: Report given to RAY tracey [facility] Rapid covid test sent
--- NOTE | 2020-06-09 02:22 | NUR ---
ED Nurse Note: Bedside report given to [facility] ambulance personnel
--- NOTE | 2020-06-09 02:23 | NUR ---
ER DISCHARGE NOTE: Patient was picked up by [facility] going to [place] [facility]. Packet and report given to ambulance staff. pt is aox4, on room air, with stable vital signs. pt id band and iv site endorsed without complications. pt took all belongings. patient was tfx safely to [facility] and into the ambulance safely
[2020-06-09 02:25] VITALS: BP 128/74
--- NOTE | 2020-06-09 14:52 | Diagnostic Imaging Report ---
Indication: Chest pain Technique: One view of the chest Comparison: none Findings: Lungs and pleural spaces are clear. Heart size is normal. No significant change Impression: No acute process
--- NOTE | 2020-06-11 14:56 | Cardiology Report ---
APPROVED REPORT EKG Measurement Heart [id number] <Conclusion> Normal sinus rhythm Normal ECG
== END 2020-06-09 02:33 | disposition other institution (70) ==
LOC: EMR 22:32
DX: I63.9 Cerebral infarction, unspecified (principal); I25.10 Atherosclerotic heart disease of native coronary artery without angina pectoris; I11.9 Hypertensive heart disease without heart failure; E78.00 Pure hypercholesterolemia, unspecified; E78.5 Hyperlipidemia, unspecified; I69.351 Hemiplegia and hemiparesis following cerebral infarction affecting right dominant side; Z88.6 Allergy status to analgesic agent; Z91.041 Radiographic dye allergy status
CPT/HCPCS: 36415; 71045; 80053; 83880; 84484; 85025; 85610; 85730; 93005; 96374; J2405; U0002; Z7502; 99284

== ENCOUNTER 2020-06-16 18:45 | Emergency (ER) | payer MEDICAID ==
[~2020-06-16] VITALS: Ht 170.2 cm; Wt 81.6 kg
[2020-06-16 19:00] VITALS: BP 138/87
--- NOTE | 2020-06-16 19:00 | NUR ---
ED Nurse Note: Pt walked into ED for CP since yesterday L chest 03/13 non radiating. Pt states he took aspiriin and nitro at home. He thinks it is due to hypertension. Pt is alert and orientedx4, ambulatory. Blood drawn and sent. IV established.
--- NOTE | 2020-06-16 19:05 | Emergency Room Report ---
History of Present Illness General Chief Complaint: Chest Pain Source: Patient Present Illness HPI Disclaimer: Please note that this report is being documented using DRAGON technology. This can lead to erroneous entry secondary to incorrect interpretation by the dictating instrument. HPI: 54-year-old male presents for evaluation of chest pain. Patient reports intermittent chest pain for several weeks and was hospitalized after an ER visit at this hospital and transferred to [facility] where he received a nuclear perfusion stress test read as unremarkable according to his accompanying paperwork. Describes it as pressure of the left chest. Started this morning. He took his nitroglycerin and aspirin today when his chest pain occurred. Pain now resolved. Denies shortness of breath, fever, cough. Similar to his prior episodes of chest pain. He has an appointment to see a manager crisis on 06/21. Seen in emergency department yesterday with similar complaints and discharged. No history of smoking, diabetes. He is compliant with his hypertension and cholesterol medications. 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 EOMI. Cardiovascular: RRR. S1 and S2 normal. No murmur appreciated Resp: Normal work of breathing. No cough, wheezing or crackles appreciated Abdomen: Abdomen is soft, nondistended. Nontender Skin: Intact. No abrasions, laceration or rash over the exposed skin MSK: Normal tone and bulk. Moving all extremities. No obvious deformity. Neuro: Awake and alert. Mentating appropriately. Medical Decision Making Diagnostic Impression: Primary Impression: Chest pain ER Course Is a 54-year-old male history of CAD, hypertension, hyperlipidemia presenting for evaluation of chest pain. Differential includes is not limited to stable angina, unstable angina, ACS, arrhythmia, pneumonia among others. Recent stress test is reassuring. Echo showed greater than 65% ejection fraction with no wall motion abnormality. EKG performed today shows normal sinus rhythm without evidence of ischemia. Chest x-ray unremarkable. Labs including troponin returned within normal limits. The patient remains chest pain-free during the emergency department visit. He has an appointment to see his new manager crisis in 5 days and I believe he is stable for outpatient follow-up given his recent cardiac work-up on his last admission. I did advise him that if he has any further chest pain or change in his health he should return to the emergency department for reevaluation to which he agreed. Laboratory Tests Test 06/16/20 19:04 06/16/20 19:53 White Blood Count 5.6 K/UL (4.8-10.8) Red Blood Count 4.61 M/UL (4.70-6.10) L Hemoglobin 14.8 G/DL (14.2-18.0) Hematocrit 42.8 % (42.0-52.0) Mean Corpuscular Volume 93 FL (80-99) Mean Corpuscular Hemoglobin 32.0 PG (27.0-31.0) H Mean Corpuscular Hemoglobin Concent 34.5 G/DL (32.0-36.0) Red Cell Distribution Width 11.4 % (11.6-14.8) L Platelet Count 129 K/UL (150-450) L Mean Platelet Volume 10.0 FL (6.5-10.1) Neutrophils (%) (Auto) 60.1 % (45.0-75.0) Lymphocytes (%) (Auto) 29.6 % (20.0-45.0) Monocytes (%) (Auto) 7.8 % (1.0-10.0) Eosinophils (%) (Auto) 1.6 % (0.0-3.0) Basophils (%) (Auto) 0.9 % (0.0-2.0) Sodium Level 140 MMOL/L (136-145) Potassium Level 3.8 MMOL/L (3.5-5.1) Chloride Level 105 MMOL/L (98-107) Carbon Dioxide Level 26 MMOL/L (21-32) Anion Gap 9 mmol/L (5-15) Blood Urea Nitrogen 12 mg/dL (7-18) Creatinine 1.1 MG/DL (0.55-1.30) Estimated Glomerular Filtration Rate > 60 mL/min (>60) Glucose Level 116 MG/DL (74-106) H Calcium Level 8.9 MG/DL (8.5-10.1) Total Bilirubin 0.5 MG/DL (0.2-1.0) Aspartate Amino Transferase (AST) 18 U/L (15-37) Alanine Aminotransferase (ALT) 47 U/L (12-78) Alkaline Phosphatase 55 U/L (46-116) Troponin I 0.001 ng/mL (0.000-0.056) Pro-B-Type Natriuretic Peptide 8 pg/mL (0-125) Total Protein 7.0 G/DL (6.4-8.2) Albumin 4.1 G/DL (3.4-5.0) Globulin 2.9 g/dL Albumin/Globulin Ratio 1.4 (1.0-2.7) Urine Opiates Screen Negative (NEGATIVE) Urine Barbiturates Screen Negative (NEGATIVE) Phencyclidine (PCP) Screen Negative (NEGATIVE) Urine Amphetamines Screen Negative (NEGATIVE) Urine Benzodiazepines Screen Negative (NEGATIVE) Urine Cocaine Screen Negative (NEGATIVE) Urine Marijuana (THC) Screen Negative (NEGATIVE) EKG Diagnostic Results Troponin ordered: Yes When was troponin ordered?: Jun 16, 2020 EKG Time: 18:59 Rate: normal Rhythm: NSR ST Segments: no acute changes Other Impression Sinus rhythm, normal axis, normal intervals, no ST segment changes. QTC 422 ms ASA given to the pt in ED: No - Took prior to arrival Rhythm Strip Diag. Results Rhythm Strip Time: 18:59 EP Interpretation: yes Rate: 80 Rhythm: NSR, no PVC's, no ectopy Chest X-Ray Diagnostic Results Chest X-Ray Diagnostic Results : Chest X-Ray Ordered: Yes # of Views/Limited/Complete: 1 View Indication: Chest Pain EP Interpretation: Yes Interpretation: no consolidation, no effusion, no pneumothorax, no acute cardiopulmonary disease Impression: No acute disease Electronically Signed by: Electronically signed by Dr. Emil Sandhu MD Last Vital Signs Date Time Temp Pulse Resp B/P (MAP) Pulse Ox O2 Delivery O2 Flow Rate FiO2 06/16/20 18:49 98.1 85 18 141/86 (104) 97 Room Air Disposition: HOME, SELF-CARE Condition: Stable Emil Sandhu MD Jun 16, 2020 19:05
--- NOTE | 2020-06-16 19:15 | NUR ---
ED Nurse Note: Report received from KENIA Olea. Patient does report decreased chest pain at this time.
[2020-06-16] MEDS ORDERED: FLOMAX0.4 MG ORAL (19:23)
[2020-06-16] MEDS ORDERED: LOSARTAN POTASS50 MG ORAL (19:23)
[2020-06-16] MEDS ORDERED: NITRO0.4 SL (19:23)
--- NOTE | 2020-06-16 19:35 | Diagnostic Imaging Report ---
EXAM: XR Chest, 1 View CLINICAL HISTORY: CP TECHNIQUE: Frontal view of the chest. COMPARISON: No relevant prior studies available. FINDINGS: Lungs: No consolidation. Pleural space: Unremarkable. No pneumothorax. Heart: Unremarkable. No cardiomegaly. Mediastinum: Unremarkable. Bones/joints: No acute fracture. IMPRESSION: No acute cardiopulmonary disease.
[2020-06-16 19:56] LABS: ANION GAP 9 mmol/L (5-15); BLOOD UREA NITROGEN 12 mg/dL (7-18); CALCIUM 8.9 MG/DL (8.5-10.1); CARBON DIOXIDE 26 MMOL/L (21-32); CHLORIDE 105 MMOL/L (98-107); CREATININE 1.1 MG/DL (0.55-1.30); POTASSIUM 3.8 MMOL/L (3.5-5.1); SODIUM 140 MMOL/L (136-145)
[2020-06-16 19:57] LABS: BASOPHILS % (AUTO) 0.9 % (0.0-2.0); EOSINOPHILS % (AUTO) 1.6 % (0.0-3.0); HEMATOCRIT 42.8 % (42.0-52.0); HEMOGLOBIN 14.8 G/DL (14.2-18.0); LYMPHOCYTES % (AUTO) 29.6 % (20.0-45.0); MEAN CORPUSCULAR VOLUME 93 FL (80-99); MONOCYTES % (AUTO) 7.8 % (1.0-10.0); NEUTROPHILS % (AUTO) 60.1 % (45.0-75.0); PLATELET COUNT 129 K/UL (150-450); RED BLOOD COUNT 4.61 M/UL (4.70-6.10); RED CELL DISTRIBUTION WIDTH 11.4 % (11.6-14.8); WHITE BLOOD COUNT 5.6 K/UL (4.8-10.8)
[2020-06-16 20:07] LABS: ALANINE AMINOTRANSFERASE 47 U/L (12-78); ALBUMIN 4.1 G/DL (3.4-5.0); ALBUMIN/GLOBULIN RATIO 1.4 (1.0-2.7); ALKALINE PHOSPHATASE 55 U/L (46-116); ASPARTATE AMINO TRANSFERASE 18 U/L (15-37); BILIRUBIN,TOTAL 0.5 MG/DL (0.2-1.0)
[2020-06-16 20:31] VITALS: BP 135/85
--- NOTE | 2020-06-16 20:31 | NUR ---
ER DISCHARGE NOTE: Patient is cleared to be discharged per ERMD, pt is aox4, on room air, with stable vital signs. pt was given dc and prescription instructions, pt was able to verbalize understanding, pt id band and iv site removed without complications. pt is able to ambulate with steady gait. pt took all belongings.
--- NOTE | 2020-06-18 16:07 | Cardiology Report ---
APPROVED REPORT EKG Measurement Heart [id number] <Conclusion> Normal sinus rhythm Normal ECG
== END 2020-06-16 20:31 | disposition home or self-care (01) ==
LOC: EMR 19:00
DX: R07.9 Chest pain, unspecified (principal); I10 Essential (primary) hypertension; Z86.73 Personal history of transient ischemic attack (TIA), and cerebral infarction without residual deficits; E78.00 Pure hypercholesterolemia, unspecified; E78.5 Hyperlipidemia, unspecified; Z88.6 Allergy status to analgesic agent; Z91.041 Radiographic dye allergy status
CPT/HCPCS: 36415; 71045; 80053; 80307; 83880; 84484; 85025; 93005; Z7502; 99284

== ENCOUNTER 2020-07-07 22:06 | Emergency (ER) | payer MEDICAID ==
[~2020-07-07] VITALS: Ht 170.2 cm; Wt 81.6 kg
[~2020-07-07 22:06] MED LIST changes: +FLOMAX0.4 MG ORAL; +NITRO0.4 SL
--- NOTE | 2020-07-07 22:15 | NUR ---
ED Nurse Note: wheelchair to ed c/o left sided chest pain x 10 minutes. initial onset since am. changed into gown; attached to monitor. patient ao4 with no acute distress. vitals stable. patient presents with right sided residual; past hx of cva. ekg completed at bedside. all safety measures met.
[2020-07-07 22:20] VITALS: BP 126/84
--- NOTE | 2020-07-07 22:20 | NUR ---
ED Nurse Note: iv access established. blood collected; sent down to lab. medicated patient; tolerated well
--- NOTE | 2020-07-07 22:22 | Emergency Room Report ---
History of Present Illness General Chief Complaint: Chest Pain Source: Patient, Medical Record Present Illness HPI 54-year-old male with a history of CVA in the past with residual right-sided weakness. He is in a wheelchair. Also history of hypertension. He presents with chief complaint of chest pain. This appear to be a chronic problem going on for months. He had a recent nuclear stress test done last month and was negative. He presents with chief complaint of chest pain. Pain is localized to the left chest. Mostly occurs in the morning. Pain is sharp in nature. Lasting for few minutes. Nothing made it better. Nothing made it worse. No exertional component. No nausea or vomiting or diaphoresis. Nothing made it better. Nothing made it worse. 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 COVID-19 Screening: Negative COVID-19 COVID-19 Testing Source: [facility] Patient History Past Medical History: see triage record, old chart reviewed, HTN, asthma, CVA/TIA Past Surgical History: other Pertinent Family History: none Social History: Denies: smoking Immunizations: other Reviewed Nursing Documentation: PMH: Agreed; PSxH: Agreed Nursing Documentation-PMH Past Medical History: No History, Except For Hx Cardiac Problems: Yes - high cholesterol Hx Hypertension: Yes Hx Asthma: Yes Hx Cerebrovascular Accident: Yes - 2018 Review of Systems Eye: Denies: eye pain, blurred vision ENT: Denies: ear pain, nose congestion, throat swelling Respiratory: Denies: cough, shortness of breath Cardiovascular: Reports: chest pain; Denies: palpitations Gastrointestinal: Denies: abdominal pain, diarrhea, nausea, vomiting Musculoskeletal: Denies: back pain, joint pain Skin: Denies: rash Neurological: Denies: headache, numbness Endocrine: Denies: increased thirst, increased urine Hematologic/Lymphatic: Denies: easy bruising All Other Systems: negative except mentioned in HPI Physical Exam Vital Signs Date Time Temp Pulse Resp B/P (MAP) Pulse Ox O2 Delivery O2 Flow Rate FiO2 07/07/20 22:12 98.2 80 15 126/84 (98) 95 Room Air Vitals normal Sp02 EP Interpretation: reviewed, normal General Appearance: well appearing, no apparent distress, alert Head: normocephalic, atraumatic Eyes: bilateral eye PERRL, bilateral eye EOMI ENT: hearing grossly normal, normal pharynx Neck: full range of motion, supple, no meningismus Respiratory: chest non-tender, lungs clear, normal breath sounds Cardiovascular #1: regular rate, rhythm, no murmur Gastrointestinal: normal bowel sounds, non tender, no mass, no organomegaly, no bruit, non-distended Musculoskeletal: back normal, normal range of motion, other - Wheelchair-bound Psychiatric: mood/affect normal Medical Decision Making Diagnostic Impression: Primary Impression: Chest pain Qualified Codes: R07.9 - Chest pain, unspecified ER Course This patient complained of chest pain. Very atypical in nature. This is a chronic issue with him. EKG is normal. Troponin is normal. He had a recent stress test done last month that was also normal. I see no evidence of ACS, PE, dissection to name a few. EKG Diagnostic Results Troponin ordered: Yes Rate: normal Rhythm: NSR ST Segments: no acute changes ASA given to the pt in ED: Yes Last Vital Signs Date Time Temp Pulse Resp B/P (MAP) Pulse Ox O2 Delivery O2 Flow Rate FiO2 07/07/20 22:12 98.2 80 15 126/84 (98) 95 Room Air Status: improved Disposition: HOME, SELF-CARE Condition: Stable Patient Instructions: Nonspecific Chest Pain Additional Instructions: Follow-up with your doctor in 7 days. Return if worse. Jose Angel Berrios MD Jul 07, 2020 22:22
[2020-07-07] MEDS: Aspirin Baby 81mg ORAL ONE (22:33)
[2020-07-07] MEDS: Ketorolac 30mg Inj IV ONE (22:34)
[2020-07-07 23:05] LABS: BASOPHILS % (AUTO) 0.8 % (0.0-2.0); HEMATOCRIT 42.9 % (42.0-52.0); HEMOGLOBIN 15.3 G/DL (14.2-18.0); LYMPHOCYTES % (AUTO) 32.9 % (20.0-45.0); MEAN CORPUSCULAR VOLUME 89 FL (80-99); MONOCYTES % (AUTO) 8.7 % (1.0-10.0); NEUTROPHILS % (AUTO) 55.6 % (45.0-75.0); PLATELET COUNT 148 K/UL (150-450); RED BLOOD COUNT 4.82 M/UL (4.70-6.10); RED CELL DISTRIBUTION WIDTH 12.8 % (11.6-14.8); WHITE BLOOD COUNT 5.6 K/UL (4.8-10.8)
[2020-07-07 23:08] LABS: ANION GAP 5 mmol/L (5-15); BLOOD UREA NITROGEN 22 mg/dL (7-18); CALCIUM 8.9 MG/DL (8.5-10.1); CARBON DIOXIDE 32 MMOL/L (21-32); CHLORIDE 103 MMOL/L (98-107); POTASSIUM 3.9 MMOL/L (3.5-5.1); SODIUM 140 MMOL/L (136-145)
[2020-07-07 23:30] VITALS: BP 124/83
--- NOTE | 2020-07-07 23:30 | NUR ---
ER DISCHARGE NOTE: Patient is cleared to be discharged per ERMD, pt is aox4, on room air, with stable vital signs. pt was given dc instructions, pt was able to verbalize understanding, pt id band and iv site removed without complications. pt is able to transfer to wheelchair independently without incident. pt took all belongings.
--- NOTE | 2020-07-08 12:56 | Cardiology Report ---
APPROVED REPORT EKG Measurement Heart [id number] <Conclusion> Normal sinus rhythm Normal ECG
== END 2020-07-07 23:30 | disposition home or self-care (01) ==
LOC: EMR 22:30
DX: R07.9 Chest pain, unspecified (principal); E78.00 Pure hypercholesterolemia, unspecified; I10 Essential (primary) hypertension; J45.909 Unspecified asthma, uncomplicated; Z86.73 Personal history of transient ischemic attack (TIA), and cerebral infarction without residual deficits; Z88.5 Allergy status to narcotic agent; Z91.041 Radiographic dye allergy status; Z88.8 Allergy status to other drugs, medicaments and biological substances
CPT/HCPCS: 36415; 80048; 84484; 85025; 93005; 96374; J1885; Z7502; 99284

== ENCOUNTER 2020-07-23 16:22 | Emergency (ER) | payer MEDICAID ==
[~2020-07-23] VITALS: Ht 170.2 cm; Wt 81.6 kg
[2020-07-23] MEDS ORDERED: Aspirin Baby 81mg ORAL ONE (16:45)
[2020-07-23] MEDS ORDERED: Ketorolac 30mg Inj IV ONE (16:45)
--- NOTE | 2020-07-23 16:50 | Emergency Room Report ---
History of Present Illness General Chief Complaint: Chest Pain Source: Patient Present Illness HPI 55-year-old male with history of CVA times few years here complaining of new onset of left-sided chest pain that started this morning upon waking up. Patient has been seen for chest pain several times in the past several weeks at [facility]. Reports that has an appointment with carpet installer next week for insertion of a defibrillator. Denies any new onset weakness. Patient has had right-sided weakness for many years. Is wheelchair dependent. Speaking in full sentences. Rates the pain sharp, intermittent mainly in the morning. Denies any spicy acidic food. Denies shortness of breath, cough or congestion. Reports that he is compliant with taking his medication. Allergies: Coded Allergies: MORPHINE (Verified Allergy, Mild, 03/28/20) IODINE (Unverified Allergy, Unknown, 03/25/20) Uncoded Allergies: IV CONTRAST (Allergy, Unknown, 08/22/17) COVID-19 Screening Contact w/high risk pt: No Experienced COVID-19 symptoms?: No COVID-19 Testing performed WATER PURIFIER: No Patient History Past Medical History: see triage record Past Surgical History: none Pertinent Family History: none Immunizations: UTD Reviewed Nursing Documentation: PMH: Agreed; PSxH: Agreed Nursing Documentation-PMH Past Medical History: No History, Except For Hx Cardiac Problems: Yes - high cholesterol Hx Hypertension: Yes Hx Asthma: Yes Hx Cerebrovascular Accident: Yes - 2018 Review of Systems All Other Systems: negative except mentioned in HPI Physical Exam Vital Signs Date Time Temp Pulse Resp B/P (MAP) Pulse Ox O2 Delivery O2 Flow Rate FiO2 07/23/20 16:28 98.4 77 18 136/80 (98) 99 Room Air Sp02 EP Interpretation: reviewed, normal General Appearance: no apparent distress, alert, GCS 15, non-toxic Head: normocephalic, atraumatic Eyes: bilateral eye normal inspection, bilateral eye PERRL ENT: hearing grossly normal, no angioedema, normal voice Neck: full range of motion, no meningismus, supple/symm/no masses Respiratory: chest non-tender, lungs clear, normal breath sounds, no rhonchi, no retraction, no accessory muscle use, speaking full sentences Cardiovascular #1: regular rate, rhythm, no edema, no murmur Cardiovascular #2: 2+ carotid (R), 2+ carotid (L), 2+ radial (R), 2+ radial (L), 2+ dorsalis pedis (R), 2+ dorsalis pedis (L) Gastrointestinal: non tender, soft Rectal: deferred Genitourinary: no CVA tenderness Musculoskeletal: back normal, no calf tenderness Neurologic: alert, motor strength/tone normal, oriented x3, sensory intact, responsive, speech normal Psychiatric: judgement/insight normal, memory normal, mood/affect normal, no suicidal/homicidal ideation Skin: no rash Lymphatic: no adenopathy Medical Decision Making PA Attestation All diagnoses and treatment plans were reviewed and discussed with my supervising physician Dr. Sandhu Diagnostic Impression: Primary Impression: Nonspecific chest pain ER Course 55-year-old male with history of CVA times few years here complaining of new onset of left-sided chest pain that started this morning upon waking up. Patient has been seen for chest pain several times in the past several weeks at [facility]. Reports that has an appointment with carpet installer next week for insertion of a defibrillator. Denies any new onset weakness. Patient has had right-sided weakness for many years. Is wheelchair dependent. Speaking in full sentences. Rates the pain sharp, intermittent mainly in the morning. Denies any spicy acidic food. Denies shortness of breath, cough or congestion. Reports that he is compliant with taking his medication. Ddx considered but are not limited to: [place], Angina, COPD, GERD, Vital signs: are WNL, pt. is afebrile H&PE are most consistent with nonspecific chest pain ORDERS: EKG, Chest XR, troponin, CBC, CMP, UA, tox screen ED INTERVENTIONS: Toradol, aspirin DISCHARGE: At this time pt. is stable for d/c to home. Will provide printed patient care instructions, and any necessary prescriptions. Care plan and follow up instructions have been discussed with the patient prior to discharge. Follow-up with your carpet installer, worsening symptoms return to the emergency room EKG Diagnostic Results Rate: normal Rhythm: NSR ST Segments: no acute changes Other Impression No acute ST changes ASA given to the pt in ED: No Chest X-Ray Diagnostic Results Chest X-Ray Diagnostic Results : Chest X-Ray Ordered: Yes # of Views/Limited/Complete: 1 View Indication: Chest Pain EP Interpretation: Yes PA Xray: Interpretation reviewed, by supervising MD, and agrees with findings. Interpretation: no consolidation, no effusion, no pneumothorax, no acute cardiopulmonary disease Impression: No acute disease Electronically Signed by: Elyssa Pierson PA-C Last Vital Signs Date Time Temp Pulse Resp B/P (MAP) Pulse Ox O2 Delivery O2 Flow Rate FiO2 07/23/20 16:28 98.4 77 18 136/80 (98) 99 Room Air Disposition: HOME, SELF-CARE Condition: Stable Patient Instructions: Nonspecific Chest Pain Additional Instructions: Follow-up with your carpet installer, if worsening symptoms return to the emergency room Elyssa Ocasio Jul 23, 2020 16:50
[2020-07-23 17:05] VITALS: BP 132/76
--- NOTE | 2020-07-23 17:05 | NUR ---
ED Nurse Note: Pt walked into ED for CP since 0900 today, L side, non radiating. Pt has slight nausea this morning as well. Pt is alert and orientedx4, ambulatory. Pt has been seen by PA. EKG taken. Set up on monitor.
[2020-07-23 17:26] LABS: BASOPHILS % (AUTO) 1.2 % (0.0-2.0); EOSINOPHILS % (AUTO) 2.8 % (0.0-3.0); HEMATOCRIT 40.7 % (42.0-52.0); HEMOGLOBIN 14.7 G/DL (14.2-18.0); LYMPHOCYTES % (AUTO) 32.3 % (20.0-45.0); MEAN CORPUSCULAR VOLUME 89 FL (80-99); MONOCYTES % (AUTO) 8.5 % (1.0-10.0); NEUTROPHILS % (AUTO) 55.2 % (45.0-75.0); PLATELET COUNT 114 K/UL (150-450); RED BLOOD COUNT 4.57 M/UL (4.70-6.10); RED CELL DISTRIBUTION WIDTH 12.1 % (11.6-14.8)
[2020-07-23 17:33] LABS: ANION GAP 9 mmol/L (5-15); BLOOD UREA NITROGEN 21 mg/dL (7-18); CALCIUM 8.5 MG/DL (8.5-10.1); CARBON DIOXIDE 26 MMOL/L (21-32); CHLORIDE 107 MMOL/L (98-107); CREATININE 1.1 MG/DL (0.55-1.30); POTASSIUM 4.2 MMOL/L (3.5-5.1); SODIUM 142 MMOL/L (136-145)
[2020-07-23 17:37] LABS: ALANINE AMINOTRANSFERASE 87 U/L (12-78); ALBUMIN/GLOBULIN RATIO 1.2 (1.0-2.7); ALKALINE PHOSPHATASE 63 U/L (46-116); ASPARTATE AMINO TRANSFERASE 30 U/L (15-37); BILIRUBIN,TOTAL 0.5 MG/DL (0.2-1.0)
--- NOTE | 2020-07-23 17:49 | Diagnostic Imaging Report ---
EXAM: XR Chest, 1 View CLINICAL HISTORY: PAIN TECHNIQUE: Frontal view of the chest. COMPARISON: 06/16/2020 FINDINGS: Lungs: Unremarkable. No consolidation. Pleural space: Unremarkable. No pneumothorax. Heart: Unremarkable. No cardiomegaly. Mediastinum: Unremarkable. Bones/joints: No acute abnormality IMPRESSION: Unremarkable chest.
[2020-07-23 18:00] VITALS: BP 136/72
[2020-07-23 18:46] LABS: APPEARANCE,URINE CLEAR; BILIRUBIN, URINE NEGATIVE (NEGATIVE); COLOR,URINE PALE YELLOW; GLUCOSE, URINE (UA) NEGATIVE (NEGATIVE); KETONES,URINE NEGATIVE (NEGATIVE); LEUKOCYTE ESTERASE ,URINE NEGATIVE (NEGATIVE); NITRITE,URINE NEGATIVE (NEGATIVE); PH,URINE 7 (4.5-8.0); PROTEIN,URINE NEGATIVE (NEGATIVE); UROBILINOGEN,URINE NORMAL MG/DL (0.0-1.0)
== END 2020-07-23 18:00 | disposition home or self-care (01) ==
LOC: EMR 17:20
DX: R07.89 Other chest pain (principal); I10 Essential (primary) hypertension; J45.909 Unspecified asthma, uncomplicated; Z86.73 Personal history of transient ischemic attack (TIA), and cerebral infarction without residual deficits; E78.00 Pure hypercholesterolemia, unspecified
CPT/HCPCS: 36415; 71045; 80053; 81003; 84484; 85025; 93005; 96374; J1885; Z7502; 99284

== ENCOUNTER 2020-07-31 14:42 | Emergency (ER) | payer MEDICAID ==
[~2020-07-31] VITALS: Ht 162.6 cm; Wt 81.6 kg
[2020-07-31 14:50] VITALS: BP 151/91
--- NOTE | 2020-07-31 14:50 | NUR ---
ED Nurse Note: Pt wheeled in to ED from home c/o mid sternal chest pain radiating to left neck and back onset yesterday. Per pt, he took ASA, NTG and Tylenol x45 mins bar captain. Denies SOB, on room air. Pt presents with right sided hemiplegia. AAOx4, verbally responsive. Pt placed on marketing analyst. ERPA at bedside.
--- NOTE | 2020-07-31 15:15 | NUR ---
ED Nurse Note: IV line established. Blood sent to lab.
--- NOTE | 2020-07-31 15:43 | Diagnostic Imaging Report ---
Indication: Chest pain Technique: One view of the chest Comparison: 07/23/2020 Findings: Lungs and pleural spaces are clear. Heart size is normal. No significant change Impression: No acute process
[2020-07-31 15:56] LABS: BASOPHILS % (AUTO) 1.2 % (0.0-2.0); EOSINOPHILS % (AUTO) 2.2 % (0.0-3.0); HEMATOCRIT 40.2 % (42.0-52.0); HEMOGLOBIN 14.4 G/DL (14.2-18.0); LYMPHOCYTES % (AUTO) 31.9 % (20.0-45.0); MEAN CORPUSCULAR VOLUME 89 FL (80-99); MONOCYTES % (AUTO) 8.3 % (1.0-10.0); NEUTROPHILS % (AUTO) 56.5 % (45.0-75.0); PLATELET COUNT 122 K/UL (150-450); RED BLOOD COUNT 4.52 M/UL (4.70-6.10); WHITE BLOOD COUNT 4.4 K/UL (4.8-10.8)
--- NOTE | 2020-07-31 16:30 | NUR ---
ED Nurse Note: Pt unable to provide urine at this time.
[2020-07-31 16:45] LABS: ANION GAP 6 mmol/L (5-15); BLOOD UREA NITROGEN 12 mg/dL (7-18); CALCIUM 8.8 MG/DL (8.5-10.1); CARBON DIOXIDE 30 MMOL/L (21-32); CHLORIDE 106 MMOL/L (98-107); POTASSIUM 3.7 MMOL/L (3.5-5.1); SODIUM 142 MMOL/L (136-145)
[2020-07-31 16:52] LABS: ALANINE AMINOTRANSFERASE 169 U/L (12-78); ALBUMIN 4.1 G/DL (3.4-5.0); ALBUMIN/GLOBULIN RATIO 1.2 (1.0-2.7); ALKALINE PHOSPHATASE 68 U/L (46-116); ASPARTATE AMINO TRANSFERASE 48 U/L (15-37); BILIRUBIN,TOTAL 0.6 MG/DL (0.2-1.0)
--- NOTE | 2020-07-31 16:59 | Emergency Room Report ---
History of Present Illness General Chief Complaint: Chest Pain Source: Patient, Medical Record Present Illness HPI 55-year-old male with history of CVA times few years here complaining of new onset of left-sided chest pain that started last night while at rest patient has been seen for chest pain several times in the past several weeks at [facility]. Reports that has an appointment with clinical support nurse this for insertion of a defibrillator. Denies any new onset weakness. Patient has had right-sided weakness for many years. Is wheelchair dependent. Speaking in full sentences. Rates the pain sharp, intermittent mainly in the morning. Denies any spicy acidic food. Denies shortness of breath, cough or congestion. Reports that he is compliant with taking his medication. Reports that he took nitroglycerin at home earlier today. Reports that blood pressure was 156/90 and heart rate 128 and after taking the nitroglycerin he went down to 128/70 heart rate 55. 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 COVID-19 Screening: Negative COVID-19 COVID-19 Testing Source: 2 weeks ago Patient History Past Medical History: see triage record Past Surgical History: none Pertinent Family History: none Immunizations: UTD Reviewed Nursing Documentation: PMH: Agreed; PSxH: Agreed Nursing Documentation-PMH Past Medical History: No History, Except For Hx Cardiac Problems: Yes - high cholesterol Hx Hypertension: Yes Hx Asthma: Yes Hx Cerebrovascular Accident: Yes - 2017 Review of Systems All Other Systems: negative except mentioned in HPI Physical Exam Vital Signs Date Time Temp Pulse Resp B/P (MAP) Pulse Ox O2 Delivery O2 Flow Rate FiO2 07/31/20 14:46 98.8 91 18 151/91 (111) 98 Room Air Sp02 EP Interpretation: reviewed, normal General Appearance: no apparent distress, alert, GCS 15, non-toxic Head: normocephalic, atraumatic Eyes: bilateral eye normal inspection, bilateral eye PERRL ENT: hearing grossly normal, normal pharynx, no angioedema, normal voice Neck: full range of motion, supple/symm/no masses Respiratory: chest non-tender, lungs clear, normal breath sounds, speaking full sentences Cardiovascular #1: regular rate, rhythm, no edema Cardiovascular #2: 2+ carotid (R), 2+ carotid (L), 2+ radial (R), 2+ radial (L), 2+ dorsalis pedis (R), 2+ dorsalis pedis (L) Gastrointestinal: non tender, soft, no mass, no organomegaly Rectal: deferred Genitourinary: no CVA tenderness Musculoskeletal: back normal, normal range of motion, no calf tenderness, pelvis stable Neurologic: alert, motor strength/tone normal, oriented x3, sensory intact, responsive, speech normal Psychiatric: judgement/insight normal, memory normal, mood/affect normal, no suicidal/homicidal ideation Skin: no rash Lymphatic: no adenopathy Medical Decision Making PA Attestation All diagnoses and treatment plans were reviewed and discussed with my supervising physician Dr. Sandhu Diagnostic Impression: Primary Impression: Nonspecific chest pain ER Course 55-year-old male with history of CVA times few years here complaining of new onset of left-sided chest pain that started last night while at rest patient has been seen for chest pain several times in the past several weeks at [facility]. Reports that has an appointment with clinical support nurse this for insertion of a defibrillator. Denies any new onset weakness. Patient has had right-sided weakness for many years. Is wheelchair dependent. Speaking in full sentences. Rates the pain sharp, intermittent mainly in the morning. Denies any spicy acidic food. Denies shortness of breath, cough or congestion. Reports that he is compliant with taking his medication. Reports that he took nitroglycerin at home earlier today. Reports that blood pressure was 156/90 and heart rate 128 and after taking the nitroglycerin he went down to 128/70 heart rate 55. Patient is in no distress Ddx considered but are not limited to: [place], Angina, COPD, GERD, Vital signs: are WNL, pt. is afebrile H&PE are most consistent with nonspecific chest pain ORDERS: EKG, Chest XR, cardiac labs ED INTERVENTIONS: None required at this time. DISCHARGE: At this time pt. is stable for d/c to home. Will provide printed patient care instructions, and any necessary prescriptions. Care plan and follow up instructions have been discussed with the patient prior to discharge. Advised patient to follow-up with clinical support nurse, at this time of chest pain have been ruled out the patient has been evaluated at the ED every week for same presentation of chest pain. This time patient is to follow-up with clinical support nurse for further evaluation. Advised him to return to emergency room if worsening symptoms. EKG Diagnostic Results Rate: normal Rhythm: NSR ST Segments: no acute changes Other Impression No acute ST changes ASA given to the pt in ED: No Chest X-Ray Diagnostic Results Chest X-Ray Diagnostic Results : Chest X-Ray Ordered: Yes # of Views/Limited/Complete: 1 View Indication: Chest Pain EP Interpretation: Yes PA Xray: Interpretation reviewed, by supervising MD, and agrees with findings. Interpretation: no consolidation, no effusion, no pneumothorax, no acute cardiopulmonary disease Impression: No acute disease Electronically Signed by: Elyssa Pierson PA-C Last Vital Signs Date Time Temp Pulse Resp B/P (MAP) Pulse Ox O2 Delivery O2 Flow Rate FiO2 07/31/20 14:50 91 18 Room Air 07/31/20 14:50 98.8 151/91 98 Disposition: HOME, SELF-CARE Condition: Stable Referrals: [facility]ERR[facility] (PCP) Patient Instructions: Nonspecific Chest Pain Additional Instructions: Follow-up with your clinical support nurse, continue taking your medication as directed and prescribed to you by your primary doctor and your clinical support nurse. If worsening symptoms return to the emergency room Elyssa Ocasio Jul 31, 2020 16:58
--- NOTE | 2020-07-31 17:05 | NUR ---
ED Nurse Note: Urine sent to lab.
[2020-07-31 17:10] VITALS: BP 132/78
--- NOTE | 2020-07-31 17:10 | NUR ---
ED Nurse Note: Pt cleared by ERPA for discharge. DC instructions was given and explained to pt and verbalized understanding of teachings. All medical deviecs such as ID band and IV line removed. Pt is AAO x4, ambulatory and left with all personal belongings. P/u by family member.
[2020-07-31 17:29] LABS: APPEARANCE,URINE CLEAR; BILIRUBIN, URINE NEGATIVE (NEGATIVE); COLOR,URINE PALE YELLOW; GLUCOSE, URINE (UA) NEGATIVE (NEGATIVE); KETONES,URINE NEGATIVE (NEGATIVE); LEUKOCYTE ESTERASE ,URINE NEGATIVE (NEGATIVE); NITRITE,URINE NEGATIVE (NEGATIVE); PH,URINE 7 (4.5-8.0); PROTEIN,URINE NEGATIVE (NEGATIVE); UROBILINOGEN,URINE NORMAL MG/DL (0.0-1.0)
== END 2020-07-31 17:10 | disposition home or self-care (01) ==
LOC: EMR 15:07
DX: R07.89 Other chest pain (principal); I10 Essential (primary) hypertension; J45.909 Unspecified asthma, uncomplicated; E78.00 Pure hypercholesterolemia, unspecified; Z86.73 Personal history of transient ischemic attack (TIA), and cerebral infarction without residual deficits; Z88.5 Allergy status to narcotic agent; Z91.041 Radiographic dye allergy status
CPT/HCPCS: 36415; 71045; 80053; 80307; 81003; 84484; 85025; 93005; Z7502; 99284

== ENCOUNTER 2020-09-19 18:21 | Emergency (ER) | payer MEDICAID ==
[~2020-09-19] VITALS: Ht 170.2 cm; Wt 83.9 kg
[2020-09-19 18:25] VITALS: BP 141/85
--- NOTE | 2020-09-19 18:47 | Emergency Room Report ---
History of Present Illness General Chief Complaint: Asthma Source: Patient Present Illness HPI Disclaimer: Please note that this report is being documented using PushToTestON technology. This can lead to erroneous entry secondary to incorrect interpretation by the dictating instrument. HPI: 55-year-old male history of hypertension and CVA who is wheelchair-bound for residual weakness presents for evaluation of cough, congestion chest pain. Symptoms present 3 days. Denies fever or chills. Reports a productive cough and increased mucus production. Has been using Mucinex. He feels somewhat short of breath and states that his asthma has been worse. He is taking all his medications including albuterol inhaler, fluticasone, Spiriva. No known sick contacts. No recent Covid testing. Patient had nuclear stress test several months ago and was negative. States he only has chest pain when coughing. Denies exertional dyspnea. Denies diaphoresis or palpitations. PMH: Asthma, CVA, hypertension PSH: Reviewed Allergies: Iodine Social Hx: Reviewed Allergies: Coded Allergies: MORPHINE (Verified Allergy, Mild, 03/28/20) IODINE (Unverified Allergy, Unknown, 03/25/20) Uncoded Allergies: IV CONTRAST (Allergy, Unknown, 08/22/17) COVID-19 Screening Contact w/high risk pt: No Experienced COVID-19 symptoms?: Yes COVID-19 Testing performed SOLUTIONS CONSULTANT: No Nursing Documentation-PMH Hx Cardiac Problems: Yes - high cholesterol Hx Hypertension: Yes Hx Asthma: Yes Hx Cerebrovascular Accident: Yes - 2018 Review of Systems All Other Systems: negative except mentioned in HPI Physical Exam Vital Signs Date Time Temp Pulse Resp B/P (MAP) Pulse Ox O2 Delivery O2 Flow Rate FiO2 09/19/20 18:25 98.6 86 20 141/85 (103) 96 General: Awake and alert, no acute distress HEENT: NC/AT. EOMI. Cardiovascular: RRR. S1 and S2 normal. No murmur appreciated Resp: Normal work of breathing. Nonproductive cough during exam. Bilateral coarse rales. Spitting up mucus. No wheezing Skin: Intact. No abrasions, laceration or rash over the exposed skin MSK: Normal tone and bulk. Moving all extremities. No obvious deformity. Neuro: Awake and alert. Mentating appropriately. Medical Decision Making Diagnostic Impression: Primary Impression: Nonspecific chest pain Additional Impression: Cough ER Course 55-year-old male presents for evaluation of cough congestion and chest discomfort for the past 3 days. Differential includes was not limited to pneumonia, bronchitis, COVID-19 infection, viral syndrome, URI, ACS, arrhythmia, electrolyte abnormality, musculoskeletal chest pain among others. Arrives with stable vital signs oxygenating well on room air. Patient has chronic chest pain and had a recent nuclear stress test which was unremarkable. EKG unremarkable and unchanged from previous. No infiltrate on chest x-ray. Rapid COVID-19 antigen test is negative. Other labs including troponin within normal limits. The patient had stable vital signs throughout ED stay. Stable for outpatient follow-up. Likely a viral syndrome. Will follow up with his PMD and continue quarantine precautions. He understands agrees with treatment plan will return with new or worsening symptoms. Laboratory Tests Test 09/19/20 18:56 White Blood Count 5.3 K/UL (4.8-10.8) Red Blood Count 4.64 M/UL (4.70-6.10) L Hemoglobin 14.3 G/DL (14.2-18.0) Hematocrit 43.8 % (42.0-52.0) Mean Corpuscular Volume 94 FL (80-99) Mean Corpuscular Hemoglobin 30.9 PG (27.0-31.0) Mean Corpuscular Hemoglobin Concent 32.8 G/DL (32.0-36.0) Red Cell Distribution Width 11.7 % (11.6-14.8) Platelet Count 116 K/UL (150-450) L Mean Platelet Volume 11.3 FL (6.5-10.1) H Neutrophils (%) (Auto) 53.4 % (45.0-75.0) Lymphocytes (%) (Auto) 31.9 % (20.0-45.0) Monocytes (%) (Auto) 11.1 % (1.0-10.0) H Eosinophils (%) (Auto) 2.3 % (0.0-3.0) Basophils (%) (Auto) 1.3 % (0.0-2.0) Sodium Level 143 MMOL/L (136-145) Potassium Level 4.0 MMOL/L (3.5-5.1) Chloride Level 108 MMOL/L (98-107) H Carbon Dioxide Level 28 MMOL/L (21-32) Anion Gap 7 mmol/L (5-15) Blood Urea Nitrogen 12 mg/dL (7-18) Creatinine 1.0 MG/DL (0.55-1.30) Estimated Glomerular Filtration Rate > 60 mL/min (>60) Glucose Level 106 MG/DL (74-106) Calcium Level 8.7 MG/DL (8.5-10.1) Total Bilirubin 0.5 MG/DL (0.2-1.0) Aspartate Amino Transferase (AST) 27 U/L (15-37) Alanine Aminotransferase (ALT) 64 U/L (12-78) Alkaline Phosphatase 64 U/L (46-116) Troponin I 0.000 ng/mL (0.000-0.056) Total Protein 7.4 G/DL (6.4-8.2) Albumin 4.0 G/DL (3.4-5.0) Globulin 3.4 g/dL Albumin/Globulin Ratio 1.2 (1.0-2.7) Microbiology Date/Time Source Procedure Growth Status 09/19/20 18:56 Nasopharynx SARS-CoV-2 Antigen (Rapid)(KARELY) - Final Complete EKG Diagnostic Results Troponin ordered: Yes When was troponin ordered?: Sep 19, 2020 EKG Time: 19:11 Rate: normal Rhythm: NSR ST Segments: no acute changes Other Impression Sinus rhythm, normal axis, normal intervals, no ST segment changes. Rhythm Strip Diag. Results Rhythm Strip Time: 19:11 EP Interpretation: yes Rate: 66 Rhythm: NSR, no PVC's, no ectopy Chest X-Ray Diagnostic Results Chest X-Ray Diagnostic Results : Chest X-Ray Ordered: Yes # of Views/Limited/Complete: 1 View Indication: Shortness of Breath EP Interpretation: Yes Interpretation: no consolidation, no effusion, no pneumothorax, no acute cardiopulmonary disease Impression: No acute disease Electronically Signed by: Electronically signed by Dr. Emil Sandhu MD Last Vital Signs Date Time Temp Pulse Resp B/P (MAP) Pulse Ox O2 Delivery O2 Flow Rate FiO2 09/19/20 18:25 98.6 86 20 141/85 (103) 96 Disposition: HOME, SELF-CARE Condition: Stable Emil Sandhu MD Sep 19, 2020 18:47
--- NOTE | 2020-09-19 19:00 | NUR ---
Patient presents to the ER with c/o chest pain for three days. He also has a productive cough, increased mucus and congestion for which he has been using Mcinex but symptoms has not been allieviated. He has a history of HTN, asthma and CVA. He is wheelchair bound for residual weakness. He is compliant with all his medications. Presents to the ER further assessments.
--- NOTE | 2020-09-19 19:10 | NUR ---
ED Nurse Note: Received patient in bed, resting. AOx4,calm and cooperative. Mild cough, nonproductive. Denies SOB. 119/69, 72, O2 sat 99% room air.
[2020-09-19 19:16] LABS: BASOPHILS % (AUTO) 1.3 % (0.0-2.0); EOSINOPHILS % (AUTO) 2.3 % (0.0-3.0); HEMATOCRIT 43.8 % (42.0-52.0); HEMOGLOBIN 14.3 G/DL (14.2-18.0); LYMPHOCYTES % (AUTO) 31.9 % (20.0-45.0); MEAN CORPUSCULAR VOLUME 94 FL (80-99); MONOCYTES % (AUTO) 11.1 % (1.0-10.0); NEUTROPHILS % (AUTO) 53.4 % (45.0-75.0); PLATELET COUNT 116 K/UL (150-450); RED BLOOD COUNT 4.64 M/UL (4.70-6.10); RED CELL DISTRIBUTION WIDTH 11.7 % (11.6-14.8); WHITE BLOOD COUNT 5.3 K/UL (4.8-10.8)
[2020-09-19 19:42] LABS: ANION GAP 7 mmol/L (5-15); BLOOD UREA NITROGEN 12 mg/dL (7-18); CALCIUM 8.7 MG/DL (8.5-10.1); CARBON DIOXIDE 28 MMOL/L (21-32); CHLORIDE 108 MMOL/L (98-107); SODIUM 143 MMOL/L (136-145)
[2020-09-19 19:46] LABS: ALANINE AMINOTRANSFERASE 64 U/L (12-78); ALBUMIN/GLOBULIN RATIO 1.2 (1.0-2.7); ALKALINE PHOSPHATASE 64 U/L (46-116); ASPARTATE AMINO TRANSFERASE 27 U/L (15-37); BILIRUBIN,TOTAL 0.5 MG/DL (0.2-1.0)
--- NOTE | 2020-09-19 21:00 | NUR ---
ER DISCHARGE NOTE: Patient is cleared to be discharged per ERMD, pt is aox4, on room air, with stable vital signs. pt was given dc instructions, pt was able to verbalize understanding, pt id band and iv site removed without complications. pt is able to ambulate with steady gait. pt took all belongings.
--- NOTE | 2020-09-20 16:44 | Diagnostic Imaging Report ---
Indication: Chest pain Technique: One view of the chest Comparison: 07/31/2020 Findings: The heart upper limits of normal in size. The lungs and pleural spaces are clear. There is no significant interim change Impression: Can't mainly. No acute process
== END 2020-09-19 21:00 | disposition home or self-care (01) ==
LOC: EMR 18:55
DX: R05 Cough (principal); R07.9 Chest pain, unspecified; I10 Essential (primary) hypertension; E78.00 Pure hypercholesterolemia, unspecified; Z88.6 Allergy status to analgesic agent; Z91.041 Radiographic dye allergy status; Z86.73 Personal history of transient ischemic attack (TIA), and cerebral infarction without residual deficits; Z99.3 Dependence on wheelchair
CPT/HCPCS: 36415; 71045; 80053; 84484; 85025; 93005; Z7502; 99284